=== PATIENT | female | born 1955 | race Caucasian/White ===

== ENCOUNTER → 2025-03-31 | Outpatient (CLI) | payer MEDICARE | LOC: M SOG 06:47 | PROVIDERS: ATTEND Neuromusculoskeletal Medicine, Sports Medicine | DX: M65.341 Trigger finger, right ring finger (principal) ==

== ENCOUNTER → 2025-04-03 | Outpatient (CLI) | payer MEDICARE ==
[~2025-04-03] MED LIST: ATOR80TA59 PO; BIOT1TAB PO; CHEL50TA3 PO; CO Q1CAP2 PO; D3 S20002 PO; DILT240C28 PO; ECHI400C19 PO; ECOT81TA5 PO; ELDE350C PO; FAMO40TA3 PO; ISOS1TAB36 PO; KP F1200 PO; LEVOTAB10 PO; MAGN400C PO; MONT10TA97 PO; TURM500T PO; VITA-243 PO; VITA180C2 PO; VITA30005 SL; VITA80004 PO
== END ==
LOC: M WHC 12:10 → EDUNIT# 13:15
PROVIDERS: ATTEND Registered Nurse
DX: Z12.31 Encounter for screening mammogram for malignant neoplasm of breast (principal); N60.11 Diffuse cystic mastopathy of right breast; N60.12 Diffuse cystic mastopathy of left breast

== ENCOUNTER → 2025-04-11 | Outpatient (CLI) | payer MEDICARE | LOC: M RAD 13:00 → EDUNIT# 14:00 | PROVIDERS: ATTEND Physician Assistant | DX: Z12.2 Encounter for screening for malignant neoplasm of respiratory organs (principal); Z87.891 Personal history of nicotine dependence; J47.9 Bronchiectasis, uncomplicated; I70.0 Atherosclerosis of aorta; I25.10 Atherosclerotic heart disease of native coronary artery without angina pectoris ==

== ENCOUNTER 2025-06-06 11:05 | Day surgery (SDC) | payer MEDICARE ==
[~2025-06-06] VITALS: Ht 152.4 cm; Wt 65.0 kg
[2025-06-06] MEDS ORDERED: LR 1,000 ML IV SCH (11:30)
[2025-06-06] MEDS ORDERED: MIDAZOLAM INJ 2 MG/2 ML VIAL As Ordered ONE (12:44)
[2025-06-06] MEDS ORDERED: LIDOCAINE 2% 100 MG/5 ML SDV (FOR ANES.) As Ordered ONE (12:50)
[2025-06-06] MEDS: ceFAZolin SOD 2 GM IV ONCE IV ONE (13:25)
[2025-06-06] MEDS ORDERED: ACETAMINOPHEN 1000MG/100ML IV BAG As Ordered ONE (13:48)
[2025-06-06] MEDS: LIDOCAINE 1% SDV 30 ML VIAL As Ordered ONE (14:00)
[2025-06-06] MEDS ORDERED: dexAMETHasone 4 MG/ML 1 ML VIAL As Ordered ONE (14:11)
[2025-06-06] MEDS ORDERED: ONDANSETRON 4MG 2ML VIAL As Ordered ONE (14:11)
[2025-06-06 14:33] VITALS: BP 120/69; TEMP 97; O2SAT 95
== END 2025-06-06 14:57 | disposition home or self-care (01) ==
LOC: M SDC 11:05
PROVIDERS: ATTEND Neuromusculoskeletal Medicine, Sports Medicine
DX: M65.341 Trigger finger, right ring finger (principal); F17.210 Nicotine dependence, cigarettes, uncomplicated; E78.00 Pure hypercholesterolemia, unspecified; G47.30 Sleep apnea, unspecified; Z79.899 Other long term (current) drug therapy; Z79.82 Long term (current) use of aspirin; Z88.8 Allergy status to other drugs, medicaments and biological substances
CPT/HCPCS: 26055; J0131; J0688; J1100; J2250; J2405; J3010

== ENCOUNTER → 2025-08-29 | Outpatient (CLI) | payer MEDICARE ==
[2025-08-29 18:12] LABS: CALCIUM LEVEL 9.4 MG/DL (8.3-10.6); CARBON DIOXIDE LEVEL 27.0 MMOL/L (20-31); CHLORIDE LEVEL 108.0 MMOL/L (98-107); CREATININE FOR GFR 0.79 MG/DL (0.55-1.30); GLOMERULAR FILTRATION RATE 79.9 (>39); POTASSIUM SERUM 4.7 MMOL/L (3.5-5.1); SODIUM LEVEL 141.0 MMOL/L (136-145)
== END ==
LOC: M WUC 14:14
PROVIDERS: ATTEND Physician Assistant
DX: I25.10 Atherosclerotic heart disease of native coronary artery without angina pectoris (principal); I10 Essential (primary) hypertension